=== PATIENT | female | born 1985 | race Asian ===

== ENCOUNTER 2022-07-16 09:17 | Outpatient (CLI) | payer OTHER ==
--- NOTE | 2022-07-16 13:45 | MRI Report ---
PROCEDURE: ANKLE WO - LT INDICATIONS: LEFT ANKLE PAIN TECHNIQUE: Noncontrast coronal and sagittal T1 spin echo and STIR; axial T1 spin echo and T2 fast spin echo with fat saturation through the left ankle. COMPARISON: None. FINDINGS: Image quality: Excellent. MRI of the left ankle shows a the visualized ankle ligaments and tendons to be intact. Marrow signal visualized bones is normal. Do not see any significant loculated fluid collections or soft tissue mas ses. Musculature appears within normal limits. Plantar fascia is unremarkable. There is mild increased signal present at the insertion of the Achilles tendon on the posterior calca neus suggesting some mild insertional tendinopathy. No joint effusion is seen. IMPRESSION: Mild increased signal and fluid present at the insertion of the Achilles tendon on the p osterior calcaneus most consistent with some mild insertional tendinopathy. Reviewed by: Chris Parrish MD on 07/16/2022 11:18 AM PDT Approved by: Chris Parrish MD on 07/16/2022 11:18 AM PDT Station ID: [id number]
== END 2022-07-16 09:18 | disposition home or self-care (01) ==
LOC: DI 09:17
PROVIDERS: ATTEND Podiatrist
DX: M25.572 Pain in left ankle and joints of left foot (principal)